=== PATIENT | female | born 1985 | race Caucasian/White ===

== ENCOUNTER → 2017-06-01 | Outpatient (CLI) | payer OTHER | LOC: FIMAGING 07:23 | PROVIDERS: ATTEND Advanced Practice Midwife | DX: O30.041 Twin pregnancy, dichorionic/diamniotic, first trimester (principal); Z3A.13 13 weeks gestation of pregnancy ==

== ENCOUNTER → 2017-07-13 | Outpatient (CLI) | payer OTHER | LOC: FIMAGING 07:18 | PROVIDERS: ATTEND Advanced Practice Midwife | DX: O30.042 Twin pregnancy, dichorionic/diamniotic, second trimester (principal); O35.9XX2 Maternal care for (suspected) fetal abnormality and damage, unspecified, fetus 2; Z3A.19 19 weeks gestation of pregnancy; Z14.1 Cystic fibrosis carrier ==

== ENCOUNTER → 2017-07-29 | Outpatient (CLI) | payer OTHER | LOC: FIMAGING 09:13 | PROVIDERS: ATTEND Advanced Practice Midwife | DX: O30.042 Twin pregnancy, dichorionic/diamniotic, second trimester (principal); O35.9XX2 Maternal care for (suspected) fetal abnormality and damage, unspecified, fetus 2; O99.012 Anemia complicating pregnancy, second trimester; Z14.1 Cystic fibrosis carrier; Z3A.21 21 weeks gestation of pregnancy; D64.9 Anemia, unspecified ==

== ENCOUNTER 2018-01-14 09:38 | Day surgery (SDC) | payer OTHER ==
[2018-01-14] MEDS ORDERED: ceFAZolin 2 GM/DEXTROSE 100 ML IV ONE (09:58)
[2018-01-14] MEDS ORDERED: LR 1,000 ML IV ONE (10:00)
[2018-01-14] MEDS ORDERED: LIDOCAINE 1% 2 ML INJ ID PRN (10:00)
[2018-01-14] MEDS ORDERED: BUPIVACAINE/EPI 0.5% 30 ML SDV ONE (10:56)
--- NOTE | 2018-01-14 11:10 | PDANEPAE ---
ANE History of Present Illness 32 year old female (recent with pre-eclampsia / HTN) presents for hemorrhoidectomy. ANE Past Medical History - Cardiovascular History Hx Hypertension: Yes Hx Arrhythmias: No Hx Chest Pain: No Hx Coronary Artery / Peripheral Vascular Disease: No Hx CHF / Valvular Disease: No Hx Palpitations: No Cardiovascular History Comment: Patient recent delivery with twins. Severe pre- eclampsia in and continued anti-hypertensives after delivery. Delivery 11-03-17, continued bp meds (procardia and labetalol) until 2.5 weeks ago. - Pulmonary History Hx COPD: No Hx Asthma/Reactive Airway Disease: No Hx Recent Upper Respiratory Infection: No Hx Oxygen in Use at Home: No Hx Sleep Apnea: No - Neurologic History Hx Cerebrovascular Accident: No Hx Seizures: No Hx Dementia: No - Endocrine History Hx Diabetes: No Hypothyroid: No Hyperthyroid: No Obesity: no - Renal History Hx Renal Disorders: No - Liver History Hx Hepatic Disorders: No - Neurological & Psychiatric Hx Hx Neurological and Psychiatric Disorders: No - Cancer History Hx Cancer: No - Congenital Disorder History Hx Congenital Disorders: No - GI History GERD: no Hx Gastrointestinal Disorders: No - Surgical History Prior Surgeries: on 11-03-17. Mobile teeth ANE Review of Systems Review of systems is: negative Review of Systems: - Exercise capacity Exercise capacity: >=4 METS ANE Patient History - Allergies Allergies/Adverse Reactions: No Known Drug Allergies Allergy (Verified 01/13/18 16:52) - Home Medications Home medications: home medication list seen and reviewed Home Medications: NK [No Known Home Meds] 01/14/18 [Last Taken Unknown] - NPO status NPO Status: no food or drink >8 hours NPO Since - Liquids (Date): 01/13/18 NPO Since - Liquids (Time): 23:30 NPO Since - Solids (Date): 01/13/18 NPO Since - Solids (Time): 23:15 - Anes Hx Anes Hx: no prior problems - Smoking Hx Smoking Status: Never smoked Marijuana use: No - Alcohol Use Alcohol Use: Rarely - Family Anes Hx Family Anes Hx: neg - N/A ANE Labs/Vital Signs - Vital Signs Vital Signs: reviewed preoperatively; see RN documention for details Blood Pressure: 132/78 Heart Rate: 60 Respiratory Rate: 16 O2 Sat (%): 95 Height: 167.64 cm Weight: 56.699 kg ANE Physical Exam - Airway Neck exam: FROM Mallampati Score: Class 2 Mouth exam: normal dental/mouth exam - Pulmonary Pulmonary: no respiratory distress - Cardiovascular Cardiovascular: regular rate and rhythym - ASA Status ASA Status: II ANE Anesthesia Plan Anesthesia Plan: GA w LMA, GA with mask Total IV Anesthesia: Yes
--- NOTE | 2018-01-14 12:10 | PDHPUP ---
History & Physical Update H&P update statement: This history and physical update is based on an assessment of the patient which was completed after admission or registration (within 24 hours), but prior to the surgery/procedure. H&P update: H&P reviewed & patient examined, no change in patient's condition since H&P completed
[2018-01-14] MEDS ORDERED: PROPOFOL/EMULSION 500 MG/50 ML BOTTLE IV ONE (12:38)
[2018-01-14] MEDS ORDERED: fentaNYL 100 MCG/2 ML INJ ONE ×2 (12:46→13:41)
--- NOTE | 2018-01-14 13:26 | POSTOPPROG ---
Post Op Note Date of Operation: 01/14/18 Surgeon: Marleny Mcdaniel Anesthesiologist: DERRELL Anesthesia: GET(General Endotracheal) Pre-op Diagnosis: thrombosed hemorrhoid Post-op Diagnosis: same Indication: 32 yo with thrombosed hemorrhoid Procedure: hemorrhoidectomy Findings: thrombosed LL pile Inf/Abcess present in the surg proc area at time of surgery?: No Depth: Superfical (Skin SQ) EBL: Minimal Specimen(s): hemorrhoid
[2018-01-14] MEDS ORDERED: PHENYLEPHRINE HCL 100 MCG/ML SYR IVP PRN (13:55)
[2018-01-14] MEDS ORDERED: LR 500 ML IV PRN (13:55)
[2018-01-14] MEDS ORDERED: ONDANSETRON 4 MG/2 ML VIAL IVP PRN (13:55)
[2018-01-14] MEDS ORDERED: NALOXONE HCL 0.4 MG/ML INJ IVP PRN (13:55)
[2018-01-14] MEDS ORDERED: HYDROCODONE/APAP 5/325 TAB PO PRN (13:55)
[2018-01-14] MEDS: fentaNYL 100 MCG/2 ML INJ IVP PRN ×2 (14:00→14:16)
[2018-01-14] MEDS ORDERED: HYDROCODONE/APAP 5/325 TAB ONE (14:08)
--- NOTE | 2018-01-14 15:11 | POSTANESTH ---
Post Anesthetic Evaluation Cardiovascular Status: Normal, Stable, Similar to Pre-Op Cond Respiratory Status: Normal, Stable, Similar to Pre-op Cond. Level of Consciousness/Mental Status: Can Participate in Eval, Alert and Oriented Pain Control: Adequate, Prn Tx Ordered Nausea/Vomiting Control: Adequate, Prn Tx Ordered Complications Possibly Related to Anesthesia: None Noted
[2018-01-14 15:13] VITALS: BP 151/90
--- NOTE | 2018-01-14 21:04 | GOP ---
[f rep st] OPERATIVE REPORT DATE OF OPERATION: 01/14/2018 SURGEON: Marleny Mcdaniel MD ANESTHESIA: General. ANESTHESIOLOGIST: Dr. Salvador Salazar. PREOPERATIVE DIAGNOSIS: Acute thrombosed hemorrhoids. POSTOPERATIVE DIAGNOSIS: Acute thrombosed hemorrhoids. PROCEDURE PERFORMED: 1. Hemorrhoidectomy x1 pile. 2. Incision and drainage of 2nd hemorrhoid. FINDINGS: thrombosed hemorrhoids SPECIMENS: Hemorrhoid. ESTIMATED BLOOD LOSS: 10 cc. INDICATIONS: Alicia Almeida is a 32-year-old who was with twins and developed hemorrhoids. She has tried topicals and then they have become worse. I examined her in the office, and the pain was increased. I was unable to perform a full exam in the office. DESCRIPTION OF PROCEDURE: Patient was brought into the operating room, placed supine on the table and general anesthesia was administered. She was placed in a lithotomy position. Her bottom was prepped and draped in the usual sterile fashion. I performed a digital rectal exam, followed by anoscopy. She had a large thrombosed internal/external hemorrhoid on the left lateral pile and the thrombosed hemorrhoid on the right lateral pile. I placed a 3-0 Vicryl suture at the apex of the hemorrhoid. I excised the hemorrhoid. Hemostasis was achieved. I sutured the defect closed with 3-0 Vicryl. Next, I performed an incision and drainage on the opposite to extract some clot. I then sutured the smaller defect closed with 3-0 Vicryl. She was taken out of lithotomy position , awakened in the operating room, extubated, transferred to PACU in stable condition. /[id number]/MODL MTDD
== END 2018-01-14 15:31 | disposition home or self-care (01) ==
LOC: FSGY 09:38
PROVIDERS: ATTEND Surgery
PROC: 06BY0ZC Excision of Hemorrhoidal Plexus, Open Approach (ICD-10-PCS; principal; 2018-01-14 11:00)
DX: K64.5 Perianal venous thrombosis (principal)
CPT/HCPCS: J0690; J2704; J3010